=== PATIENT | male | born 1940 | race Caucasian/White ===

== ENCOUNTER 2016-09-12 22:35 | Emergency (ER) | payer OTHER ==
[~2016-09-12] VITALS: Ht 177.8 cm; Wt 90.1 kg
[~2016-09-12 22:35] MED LIST: ASPI81TA28 PO; LISI-787 PO
[2016-09-12 22:38] VITALS: TEMP 36.7; Ht 177.8 cm; Wt 90.1 kg
[2016-09-12] MEDS ORDERED: PROPARACAINE HCL 0.5% OP SOLN 15 ML BTL OP STA (23:09)
--- NOTE | 2016-09-12 23:35 | EMERGENCY ROOM VISIT NOTE ---
History First contact with patient: 22:58 Chief Complaint: EYE ASSESSMENT Stated Complaint: SWOLLEN RIGHT EYE History of Present Illness The patient is a 76 year old male who presents to the Emergency Room via private vehicle with complaints of "swollen right eye". The patient states that earlier today, around 4 PM he got out of the swimming pool he noticed a irritated and reddened right eye. He states that an swelling began inside the eye, in minimal discomfort. There is lacrimation. He denies any vision change. His tetanus is up-to-date. Review of Systems A complete 6-point Review of Systems was discussed with the patient, with pertinent positives and negatives listed in the History of Present Illness. All remaining Review of Systems questions can be considered negative unless otherwise specified. Past Medical/Surgical History No pertinent past medical history. Family History No pertinent family history. Social History Smoking Status: Never Smoker Patient lives locally. Current/Historical Medications Scheduled Aspirin (Aspirin Ec), 81 MG PO DAILY Lisinopril/Hctz (Zestoretic 20MG/12.5MG), 1 TAB PO DAILY Multivitamin (Multivitamin), 1 TAB PO DAILY Physical Exam Vital Signs Date Time Temp Pulse Resp B/P (MAP) Pulse Ox O2 Delivery O2 Flow Rate FiO2 09/12/ 22:38 36.7 78 18 147/78 93 Room Air Physical Exam VITAL SIGNS - Vital signs and nursing notes were reviewed. Elevated blood pressure. Otherwise stable. GENERAL -76-year-old male appearing his stated age. Communicates well with provider and answers questions appropriately. HEAD - Normocephalic, Atraumatic. No Taylor's Sign or Raccoon's Eyes. No depressed skull fractures palpable. EYES - PERRL with EOMI bilaterally. Sclera without noticeable foreign body or excoriations. No injection noted in the right eye. Without subconjunctival hemorrhage. Palpebral conjunctiva pink and moist with no injection or discharge noted. Brief fundoscopic exam demonstrates no AV-nicking, cotton wool spots, or flame hemorrhages. Slit lamp examination performed as further described. There is bulbar chemosis noted. Slit Lamp Examination was performed of the right eye(s). Alcaine drops were applied to the affected eye(s) for proper anesthetization. The affected eye(s) were stained with Fluorescein stain to precipitate adequate visualization of any conjunctival/scleral excoriations or ulcers. The patient's face was comfortably rested on the chin guard of the slit lamp apparatus. The lights were dimmed and the affected eye(s) were thoroughly examined under microscopy using the blue light. No uptake was present within the right eye. Additionally , the eye(s) were examined under microscopy using the regular light. Close examination revealed chemosis. Patient tolerated the procedure well and no complications were met. An Automated Tonometer was utilized to obtain bilateral orbital pressures. The pressures in the LEFT eye were found to be 10, 12 with an average of 11. The pressures in the RIGHT eye were found to be 22, 19 with an average of 20.5. Patient tolerated the procedure well and no complications were met. Medical Decision & Procedures Medical Decision Patient was seen and evaluated as above. He presents to us today with irritation of the right conjunctiva, with chemosis diffuse within the right eye. No evidence of trauma. Examination unremarkable other than the inflammation. Pressures are stable. I believe that the slight elevation of the right eye pressure is secondary to the inflammation. I will place him on Ciloxan eyedrops to help prevent any infection, and we'll refer him to his family doctor for elevated blood pressure, and eye doctor for follow-up. No evidence of emergent process. He was educated upon worrisome symptoms which to return, had questions or discharge, and was discharged home in good condition. In the evaluation and treatment of this patient, the following differential diagnoses were considered: Corneal Abrasion, Conjunctivitis, Eye Contusion, Globe Injury, Orbital Floor Injury (Blowout Fracture), Corneal Ulcer, Keratitis , Herpes Zoster Opthalmic, Blepharitis, Orbital Cellulitis, Iritis, Scleritis/ Episcleritis, Uveitis, Temporal Arteritis, Subconjunctival Hemorrhage. Blood Pressure Screening Patient's blood pressure: Elevated blood pressure Blood pressure disposition: Elevated BP felt to be situational, Referred to PCP Impression Primary Impression: Chemosis of right conjunctiva Departure Information Dispostion Home / Self-Care Condition GOOD Referrals Rashel Carranza M.D. (PCP) Patient Instructions My [facility] Additional Instructions You have been treated in the Emergency Department today for your chemosis/eye irritation/inflammation. You have been prescribed Ciloxan eye drops. This is an antibiotic which will help to prevent an infection from developing in your affected eye. Instill 1 to 2 drops into the conjunctival sac every 2 hours while awake for 2 days and 1 to 2 drops every 4 hours while awake for the next 5 days. You should schedule a follow-up appointment in 2-3 days with your Primary Care Provider or established Eye Doctor ([facility]) for further evaluation and treatment of your eye inflammation. Please follow up with your family doctor regarding your elevated blood pressure today. Return to the Emergency Department if your current symptoms worsen despite treatment course outlined above, or if you develop any of the following symptoms : intractable pain, visual disturbances, loss of vision, increased redness, swelling, drainage, or if you develop a fever.
[2016-09-12] MEDS ORDERED: MULT-506 PO (23:48)
[2016-09-13] MEDS ORDERED: CIPROFLOXACIN HCL 0.3% OP SOLN 2.5 ML BTL OP STA (00:10)
[2016-09-13 00:28] VITALS: BP 132/74; PULSE 78; O2SAT 98
== END 2016-09-13 00:30 | disposition home or self-care (01) ==
LOC: C.EDB 22:36 → C.EDC 09-13 00:30
DX: H11.421 Conjunctival edema, right eye (principal); Z79.82 Long term (current) use of aspirin